=== PATIENT | male | born 1975 | race Caucasian/White ===

== ENCOUNTER 2022-07-10 08:11 | Outpatient (CLI) | payer BC, SELFPAY | END 2022-07-10 08:12 | disposition home or self-care (01) | LOC: FRMREF 08:12 | PROVIDERS: PCP Family Medicine; Visit Provider Family Medicine | DX: Z00.00 Encounter for general adult medical examination without abnormal findings (principal); Z13.6 Encounter for screening for cardiovascular disorders; Z13.1 Encounter for screening for diabetes mellitus; R53.83 Other fatigue | CPT/HCPCS: 80061; 82947; 84403 ==